=== PATIENT | female | born 1980 | race Caucasian/White ===

== ENCOUNTER 2017-08-03 09:10 | Emergency (ER) | payer OTHER ==
[2017-08-03 09:51] VITALS: BP 106/69
--- NOTE | 2017-08-03 10:27 | UC ---
FLU HPI - HPI Summary HPI Summary: Pt presents with 3 days of fatigue, body aches, headache, and dry cough. She has coworkers who have been diagnosed with the flu and she thinks she may have it. She took some tylenol cold and flu last night, but the sudafed in it made her "hyper" and says it didn't help her symptoms much anyway. Denies chills, SOB , chest pain, abdominal pain, n/v/d/c. - History of Current Complaint Chief Complaint: UCGeneralIllness Stated Complaint: COUGH,SORE THROAT Time Seen by Provider: 08/03/17 10:13 Hx Obtained From: Patient Hx Last Menstrual Period: IUD ?: No Onset/Duration: Gradual Onset Severity Currently: None Pain Intensity: 0 - Allergy/Home Medications Allergies/Adverse Reactions: Allergies Allergy/AdvReac Type Severity Reaction Status Date / Time No Known Allergies Allergy Verified 08/03/17 09:44 Home Medications: Home Medications Cholecalciferol TAB* [Vitamin D TAB*] 1 tab PO DAILY 08/03/17 [History Confirmed 08/03/17] Nitrofurantoin Macrocrystals* [Macrodantin*] 1 tab PO BID PRN 08/03/17 [History Confirmed 08/03/17] Phenylephrine/Dm/Acetaminop/GG [Tylenol Cold-Flu Severe Caplet] 2 tab PO BEDTIME PRN 08/03/17 [History Confirmed 08/03/17] PMH/Surg Hx/FS Hx/Imm Hx Psychological History: Anxiety, Depression - Surgical History Surgical History: Yes Surgery Procedure, Year, and Place: appendectomy - 3 years ago. ovarian cyst removal. wisdom teeth extraction. 5 babies - Family History Known Family History: Positive: Diabetes - Social History Occupation: Employed Full-time Lives: With Family Alcohol Use: Rare Substance Use Type: None Smoking Status (MU): Never Smoked Tobacco - Immunization History Most Recent Influenza Vaccination: 2013/2014 season Review of Systems Constitutional: Fatigue, Other - Body aches Skin: Negative Eyes: Negative ENT: Negative Respiratory: Cough Cardiovascular: Negative Gastrointestinal: Negative Neurological: Negative Psychological: Negative All Other Systems Reviewed And Are Negative: Yes Physical Exam Triage Information Reviewed: Yes Appearance: No Pain Distress, Well-Nourished, Ill-Appearing - [place] Vital Signs: Initial Vital Signs Temp 98.3 F 08/03/17 09:47 Pulse 79 08/03/17 09:47 Resp 18 08/03/17 09:47 BP 106/69 08/03/17 09:47 Pulse Ox 99 08/03/17 09:47 Eyes: Positive: Conjunctiva Clear. Negative: Conjunctiva Inflamed, Discharge ENT: Positive: Hearing grossly normal, Pharynx normal, TMs normal, Uvula midline. Negative: Pharyngeal erythema, Nasal congestion, Nasal drainage, TM bulging, TM dull, TM red, Tonsillar swelling, Tonsillar exudate, Hoarse voice, Sinus tenderness Neck: Positive: Supple, Nontender, No Lymphadenopathy Respiratory: Positive: Lungs clear, No respiratory distress, No accessory muscle use, Wheezing - Mild scattered. Negative: Crackles Cardiovascular: Positive: RRR, No Murmur, Pulses Normal Neurological: Positive: Fatigued Psychological: Positive: Age Appropriate Behavior Skin: Negative: rashes Flu Course/Dx - Course Course Of Treatment: Flu B positive. CXR: IMPRESSION: No active cardiopulmonary disease is noted. Treat with tamiflu. - Differential Dx/Diagnosis Provider Diagnoses: Influenza B Discharge - Discharge Plan Condition: Stable Disposition: HOME Prescriptions: Oseltamivir CAP* [Tamiflu CAP*] 75 mg PO BID #10 cap Patient Education Materials: Influenza (DC) Forms: *Work Release Referrals: Dylon Lutz MD [Primary Care Provider] - Additional Instructions: If you develop a fever, shortness of breath, chest pain, new or worsening symptoms - please call your PCP or go to the ED.
--- NOTE | 2017-08-03 10:53 | RAD ---
Indication: Cough. 2 views of the chest including dual energy PA views demonstrates no mediastinal shift. Heart is of normal size and configuration. Lung fierro appear clear. IMPRESSION: No active cardiopulmonary disease is noted.
== END 2017-08-03 11:00 | disposition home or self-care (01) ==
LOC: UCEAST 09:10
DX: J10.1 Influenza due to other identified influenza virus with other respiratory manifestations (principal); F41.9 Anxiety disorder, unspecified
CPT/HCPCS: 71046; 87502; 99212; G0463

== ENCOUNTER 2019-03-01 14:07 | Emergency (ER) | payer OTHER ==
--- OUTSIDE RECORDS SUMMARY | 2019-03-01 14:13 | XMS REPORT | Continuity of Care Document ---
:1980 External Reference #:[id number] Author Name Dylon Lutz MD (transmitted by agent of provider Lawrence Chacon) Address [address] [place] [address] Care Team Providers Name Role Phone Scar Brown MD - Orthopaedic Care Team Information Burn Nurse [phone] Surgery Problems Active Problems Provider Date Diabetes mellitus Onset: 11/01/2013 Chronic kidney disease Onset: 03/09/2018 Body mass index 30+ - obesity Onset: 12/30/2016 Overweight Onset: 12/30/2016 Insomnia Onset: 12/30/2016 Asthma without status asthmaticus Onset: 12/30/2016 Adult health examination Onset: 11/04/2012 Social History Type Date Description Comments Sex Unknown ETOH Use Rarely consumes alcohol Tobacco Use Start: Unknown Patient has never smoked Recreational Drug Use Denies Drug Use Smoking Status Reviewed: 10/04/18 Patient has never smoked Allergies, Adverse Reactions, Alerts Description No Known Drug Allergies Medications Active Medications SIG Qnty Indications Ordering Provider Date Bupropion Hydrochloride 1 by mouth 90tabs F32.9 Dylon 10/04/2018 ER (XL) every day MD Nelda 300mg Tablets ER 24HR Immunizations CPT Code Status Date Vaccine Lot # [id number] Given 07/06/2018 Hepatitis A Vaccine Adult Dosage [id number] HepA adult 02994 Given 07/06/2018 Meningitis B Recombinant Lipoprotein [id number] HepB pedi /Adol Vaccine Serogroup B 73268 Given 06/06/2014 Tdap - Tetanus/Diptheria/Acellular Pertussis 09531 Given 02/27/2014 Pneumococcal Conjugate Vaccine 13 Valent For Intramuscular Use 51999 Given 01/29/1994 Tetanus And Diptheria (Td) For Adult Use Preservative Free 16746 Given 01/29/1994 Measles Mumps And Rubella MMR 87732 Given 01/29/1994 DT Vaccine Younger Than 7 Yrs 40499 Given 02/15/1984 Measles Mumps And Rubella MMR 53625 Given 01/11/1984 DTP Vaccine 52874 Given 01/11/1984 Poliovirus Vaccine OPV Live Oral Use 23560 Given 02/14/1981 Poliovirus Vaccine OPV Live Oral Use 76106 Given 02/14/1981 DTP Vaccine 74895 Given 01/25/1979 Poliovirus Vaccine OPV Live Oral Use 79166 Given 1978 DTP Vaccine 62612 Given 1978 Poliovirus Vaccine OPV Live Oral Use 48134 Given 1978 DTP Vaccine 28317 Given 1978 DTP Vaccine 01911 Given 1978 Poliovirus Vaccine OPV Live Oral Use 07474 Given Unknown Influenza Virus Vaccine, Quadrivalent, Split, Im Use 6-35mo Vital Signs Date Vital Result Comment 01/31/2019 8:57am Weight 208.00 lb BP Systolic 108 mmHg BP Diastolic 70 mmHg 10/04/2018 8:09am Weight 203.00 lb BP Systolic 122 mmHg BP Diastolic 70 mmHg Results Description No Information Available Procedures Date Code Description Status 06/05/2016 [id number] Diabetic Retinal Eye Exam Completed Medical Devices Description No Information Available Encounters Type Date Location Provider Dx Diagnosis Office Visit 10/04/2018 [facility] Dylon F33.1 Major depressive 8:00sidra Lutz MD disorder, recurrent, moderate F43.11 Post-traumatic stress disorder, acute Assessments Date Code Description Provider 01/31/2019 F33.1 Major depressive disorder, recurrent, Dylon Lutz MD moderate 01/31/2019 R73.03 Prediabetes Dylon Lutz MD 10/04/2018 F33.1 Major depressive disorder, recurrent, Dylon Lutz MD moderate 10/04/2018 F43.11 Post-traumatic stress disorder, acute Dylon Lutz MD Plan of Treatment Future Appointment(s):05/10/2019 9:00 am - Dylon Lutz MD at [facility]07/07/2019 8:15 am - Dylon Lutz MD at [facility] - Dylon Lutz MDF33.1 Major depressive disorder, recurrent, moderateNew Labs:TSH (Thyroid Stim Horm), Ordered: 01/31/19Vitamin D Total 25(Oh ), Ordered: 01/31/19Follow up:3 ttwckbJ05.03 PrediabetesNew Labs:Hemoglobin A1c (Glyco HGB), Ordered: 01/31/19Comp Metabolic Panel, Ordered: 01/31/19CRP High Sensitivity, Ordered: 01/31/19Homocysteine, Ordered: 01/31/19Lipid Profile (Trig /Chol/HDL), Ordered: 01/31/19 Functional Status Description No Information Available Mental Status Description No Information Available Referrals Description No Information Available
[2019-03-01 14:17] VITALS: BP 131/72
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
== END 2019-03-01 16:00 | disposition home or self-care (01) ==
LOC: UCEAST 14:07
DX: F07.81 Postconcussional syndrome (principal); S00.93XA Contusion of unspecified part of head, initial encounter; Y04.2XXA Assault by strike against or bumped into by another person, initial encounter; Y92.019 Unspecified place in single-family (private) house as the place of occurrence of the external cause; F41.9 Anxiety disorder, unspecified
CPT/HCPCS: 70486; 99211; G0463